=== PATIENT | female | born 1990 | race Caucasian/White ===

== ENCOUNTER 2016-10-27 09:48 | Emergency (ER) | payer OTHER ==
[~2016-10-27] VITALS: Ht 157.5 cm; Wt 50.0 kg
[2016-10-27 09:52] VITALS: BP 112/76; PULSE 105; RESP 14; O2SAT 100
--- NOTE | 2016-10-27 09:57 | ED.REPORT ---
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 The pt went to Crisis this morning to secure a bed , and was instructed to come to the ED for medical clearance and a prescription for medications to help with withdrawal before she would be accepted. She last used heroin and 6 mg of alprazolam this morning. The pt denies chest pain or shortness of breath, and has not yet experienced any withdrawal symptoms yet. She has attempted treatment for detox eleven times previously. Nursing Notes Stated Complaint: DETOX Chief Complaint: Substance Abuse Nursing Notes Reviewed: Yes Allergies: Coded Allergies: No Known Allergies (Unverified , 10/27/16) General Time Seen by MD: 09:56 Chief Complaint Other (clearance for [facility]) Hx Obtained From: Patient Arrived By: Walk-in Sudden in Onset?: No Symptom Duration: Since onset Recent Healthcare: No recent hospitalization Similar Sx Previous: Yes Past Medical History Past Medical History bilateral lower extremity DVT Past Surgical History none reported Smoking History Unknown if Ever Smoker Social History Alcohol Use: Denies alcohol use Drug Use: IV drugs (heroin), Other (Benzodiazepines) Other Social History: Good social support Ambulatory Status Independent Review of Systems Full Review of Systems Respiratory: Denies: Non-productive cough, Shortness of breath Cardiovascular: Denies: Chest pain GI: Denies: Abdominal pain, Vomiting Musculoskeletal: Denies: Back pain, Neck pain Skin: Denies Rash Complete sys rev & neg: except as marked. Physical Exam Vital Signs Vital Signs Date Time Temp Pulse Resp B/P Pulse Ox O2 Delivery O2 Flow Rate FiO2 10/27/16 11:00 98 14 111/76 100 Room Air 10/27/16 09:52 36.8 105 14 112/76 100 Room Air Initial VS: Reviewed General/Constitutional: Awake, Alert interactive Head / Eyes: Atraumatic, Normocephalic, PERRL, EOMI ENT: Atraumatic, Airway patent, Mucous membranes moist Neck: Atraumatic, Supple, Full range of motion Respiratory / Chest: Atraumatic, Breath sounds NL, Breath sounds = bilat, No respiratory distress Cardiovascular: Heart rate NL, Regular rhythm, Heart sounds NL Abdomen: Soft, Non-tender Back: Full range of motion Upper Extremities Upper Extremity / MS: Full range of motion, Neurologic intact, Vascular intact Lower Extremity / Pelvis / MS: Full range of motion, Neurologic intact, Vascular intact Skin: Color NL, No rash, Warm, Dry Neurologic: Oriented X3, Speech NL, No motor deficits, No sensory deficits Psychiatric: Affect NL, Mood NL Re-Eval/Medical Decision Med Decision/Clinical Course 26 Year old female history of heroin abuse and Benzodiazepine abuse presenting requesting taper for crisis respite. She last used this morning. She is alert and oriented on exam. She has a spot at crisis respite. She denies any thoughts of hurting herself or others. She will be discharged with an Ativan taper to crisis respite. Return precautions given. Time of Eval: 09:56 Patient Status: Condition improved Re-Evaluation/Progress Note: Pt informed of the diagnosis and plan for discharge during the initial interview. The pt understands and agrees with the plan. All questions are addressed at this time. Counseled Regarding: Diagnosis, Need for follow-up, When/why to return to ED Discharge & Departure Primary Impression: Substance abuse Disposition: Home Discharge Condition All VS Reviewed: Yes Condition: Stable Patient Instructions: Medical Clearance for Substance Abuse Treatment (ED) Additional Instructions: Thank you for entrusting us with your care. Go directly to [facility]. Take the Ativan as directed. Do not take this medication if you are tired. Call your primary care physician to arrange a follow up appointment in the next several days. Return to the emergency department if you develop any new or worsening symptoms including thoughts of harming yourself or others. Referrals: [facility] Scribe Attestation Portions of this note were transcribed by Yuliana Maxwell. I, Dr. Cha personally performed the history, physical exam and medical decision-making; I reviewed and confirmed the accuracy of the information in the transcribed note. copies to: [facility] Massimo Cha MD Oct 27, 2016 09:57 YULIANA MAXWELL Oct 27, 2016 10:18
[2016-10-27] MEDS ORDERED: _LORazepam 2 MG Tablet PO SCH (10:20)
[2016-10-27 11:00] VITALS: BP 111/76; PULSE 98; RESP 14; O2SAT 100
== END 2016-10-27 11:01 | disposition home or self-care (01) ==
LOC: SED 09:48
DX: F11.10 Opioid abuse, uncomplicated (principal); F13.10 Sedative, hypnotic or anxiolytic abuse, uncomplicated; Z86.718 Personal history of other venous thrombosis and embolism